=== PATIENT | male | born 1950 | race Caucasian/White ===

== ENCOUNTER 2023-04-10 09:36 | Outpatient (CLI) | payer MEDICARE, SELFPAY ==
--- NOTE | 2023-04-10 09:47 | CT_ITS ---
WS: [id number] CT NECK TECHNIQUE: Contrast-enhanced CT of the neck with coronal and sagittal reformatted images. CLINICAL INFORMATION: LOCALIZED SWELLING, MASS AND LUMP, NECK COMPARISON: None. DLP: 223.[address] scans at [facility] use at least one of these dose optimization techniques: automated e xposure control; mA and/or kV adjustment per patient size (includes targeted exams where dose is matc hed to clinical indication); or iterative reconstruction. FINDINGS: Palpable marker overlying the RIGHT parotid gland. Deep to the palpable marker there is a heterogeneo usly enhancing well-circumscribed lesion measuring approximately 2.3 x 2.3 x 3.1 cm AP by transverse by craniocaudal. Findings suspicious for neoplasm and recommend ENT consultation. LEFT parotid gland is normal. A few incidental intraparotid lymph nodes. Mastoid air cells are well a erated. Paranasal sinuses are well aerated.Normal posterior nasopharynx and parapharyngeal fat. Dedra l submandibular glands. No cervical lymphadenopathy. Mild spondylitic changes cervical spine with slight reversal normal cerv ical lordosis. Mild central canal stenosis C3-C4 due to disc osteophyte complexes. Advanced chronic e mphysematous changes in the lung apices. Fibrosis RIGHT upper lobe. Carotid bulb calcification. IMPRESSION: 1. Heterogeneously enhancing well-circumscribed RIGHT parotid lesion along the parotid tail suspicio us. Differential considerations include benign and malignant parotid neoplasms. This may represent pa rotid adenoma but indeterminant and recommend ENT consultation. 2. No cervical lymphadenopathy. 3. Moderate carotid bulb calcification.
[2023-04-10 10:09] LABS: Blood Urea Nitrogen 10 mg/dL (8-23)
[2023-04-10] MEDS: iohexol 350 mg/mL 500 mL Btl (per mL) IV (10:20)
== END 2023-04-10 09:37 | disposition home or self-care (01) ==
LOC: RAD 09:37
PROVIDERS: PCP Internal Medicine; Visit Provider Specialist
DX: R22.1 Localized swelling, mass and lump, neck (principal); K11.8 Other diseases of salivary glands; I65.29 Occlusion and stenosis of unspecified carotid artery
CPT/HCPCS: 70491; 82565; 84520; Q9967